=== PATIENT | male | born 1935 | race Caucasian/White ===

== ENCOUNTER 2018-06-06 16:51 | Inpatient (IN) | payer MEDICARE ==
[~2018-06-06] VITALS: Ht 177.8 cm; Wt 92.9 kg
[~2018-06-06 16:51] MED LIST: FURO40TA4; PHEN64.8
--- NOTE | 2018-06-06 17:34 | ERD ---
ER Documentation Chief Complaint Chief Complaint ref by PMD Zac: r/o bowel obstruction. AP since AM. HPI 82-year-old male with a history of seizure disorder, osteoporosis, renal calculi and remote bowel resection for benign colon polyps presents to the ED complaining of a 1 day history of generalized, crampy, moderate to severe abdominal pain with nausea and several episodes of nonbloody nonbilious emesis. Denies diarrhea and had a large bowel movement approximately hour prior to arrival. Denies hematemesis or hematochezia. Denies dysuria, polyuria, hematuria or flank pain. No chest pain, palpitations, shortness of breath or or cough. Denies recent weight loss, anorexia, night sweats, fevers or chills. ROS All systems reviewed and are negative except as per history of present illness. Medications Home Meds Reported Medications Furosemide (Lasix) 40 Mg Tab 07/06/12 Phenobarbital* (Phenobarbital*) 64.8 Mg Tablet 02/21/10 Allergies Allergies: Coded Allergies: No Known Allergy (Verified , 07/06/12) PMhx/Soc Reviewed in chart. As per HPI. History of Surgery: Yes (L shoulder arthroplasty) Anesthesia Reaction: No Hx Neurological Disorder: Yes (EPILEPSY - NO ACTIVITY FOR THE PAST 60 YRS) Hx Respiratory Disorders: No Hx Cardiac Disorders: No Hx Psychiatric Problems: No Hx Miscellaneous Medical Probl: Yes (kidney stones, seizure,UTI with sepsis) Hx Alcohol Use: Yes Hx Substance Use: No Hx Tobacco Use: No Smoking Status: Never smoker FmHx No family history relevant to presenting complaint Physical Exam Vitals Vital Signs Date Temp Pulse Resp B/P (MAP) Pulse Ox O2 O2 Flow FiO2 Time Delivery Rate 06/06/18 98 16 145/74 96 Room Air 19:06 (97) 06/06/18 97.3 131 22 150/68 91 16:52 (95) Physical Exam Const: No acute distress Head: Atraumatic Eyes: Normal Conjunctiva ENT: Normal External Ears, Nose and Mouth. Neck: Full range of motion. No meningismus. Resp: Clear to auscultation bilaterally Cardio: Regular rate and rhythm, no murmurs Abd: Soft, non tender, non distended. Normal bowel sounds Skin: No petechiae or rashes Back: No midline or flank tenderness Ext: No cyanosis, or edema Neur: Awake and alert Psych: Normal Mood and Affect Result Diagram: 06/07/18 0432 06/07/18 0432 Results 24 hrs Laboratory Tests Test 06/06/18 17:54 White Blood Count 16.8 10^3/ul Red Blood Count 5.22 10^6/ul Hemoglobin 16.3 g/dl Hematocrit 51.1 % Mean Corpuscular Volume 97.9 fl Mean Corpuscular Hemoglobin 31.2 pg Mean Corpuscular Hemoglobin Concent 31.9 g/dl Red Cell Distribution Width 13.2 % Platelet Count 261 10^3/UL Mean Platelet Volume 9.1 fl Immature Granulocytes % 0.400 % Neutrophils % 88.7 % Lymphocytes % 4.0 % Monocytes % 6.6 % Eosinophils % 0.0 % Basophils % 0.3 % Nucleated Red Blood Cells % 0.0 /100WBC Immature Granulocytes # 0.070 10^3/ul Neutrophils # 14.9 10^3/ul Lymphocytes # 0.7 10^3/ul Monocytes # 1.1 10^3/ul Eosinophils # 0.0 10^3/ul Basophils # 0.1 10^3/ul Nucleated Red Blood Cells # 0.0 10^3/ul Sodium Level 146 mmol/L Potassium Level 4.5 mmol/L Chloride Level 99 mmol/L Carbon Dioxide Level 34 mmol/L Anion Gap 13 Blood Urea Nitrogen 19 mg/dl Creatinine 1.53 mg/dl Est Glomerular Filtrat Rate mL/min mL/min Glucose Level 156 mg/dl Calcium Level 9.3 mg/dl Total Bilirubin 0.1 mg/dl Direct Bilirubin 0.00 mg/dl Indirect Bilirubin 0.1 mg/dl Aspartate Amino Transf (AST/SGOT) 28 IU/L Alanine Aminotransferase (ALT/SGPT) 20 IU/L Alkaline Phosphatase 97 IU/L Troponin I < 0.012 ng/ml Total Protein 7.8 g/dl Albumin 4.5 g/dl Globulin 3.30 g/dl Albumin/Globulin Ratio 1.36 Lipase 80 U/L Current Medications Medications Dose Sig/Arnold Start Time Status Last (Trade) Ordered Route PRN Stop Time Admin Dose Reason Admin Sodium 1,000 ml @ Q1H STAT 06/06/18 DC 06/06/18 Chloride 1,000 mls/hr IV 19:05 19:10 06/06/18 20:04 Procedures/MDM DOCUMENTS REVIEWED: ED nurse, prior ED, prior records EKG: Time: 1807. Sinus rhythm. Ventricular rate 98. Normal VA QRS. Left ventricular hypertrophy. Q waves in leads III and aVF. No acute ST segment elevation or depression. No ectopy. My Interpretation IMAGING: PROCEDURE: CT abdomen and pelvis without contrast. CLINICAL INDICATION: Abdominal pain. TECHNIQUE: CT scan of the abdomen and pelvis without contrast was performed on a multi-slice CT scanner . Sagittal and coronal reformatted images were obtained from the axial source images. One or more of the following dose reduction techniques were used: - Automated exposure control. - Adjustment of the mA and/or kV according to patient size. - Use of iterative reconstruction technique. DICOM images are available DLP 1164.5 mGycm. CTDIvol 18.71 mGy COMPARISON: 01/01/2016 FINDINGS: Fine detail of the soft tissues is limited secondary to the lack of IV contrast. Evaluation for enhancing lesions cannot be performed. Lower thorax:The lung bases are clear. Coronary artery calcifications are seen in the heart. Liver: There is uniform density of the liver with no gross focal lesion. Biliary: The gallbladder is unremarkable without surrounding inflammation. No biliary dilatation. Pancreas: Homogeneous density of the pancreas without visible focal lesion or cystic abnormality. There is no pancreatic ductal dilatation. Spleen: Unremarkable without enlargement or focal lesion. Adrenal Glands: The adrenal glands are within normal limits without mass. Urinary: The kidneys are symmetric in size bilaterally. There is continued mild bilateral renal atrophy. Several left-sided nonobstructing renal calculi. Change of the largest of the left lower pole measuring 8 mm. There is mild ectasia of the right renal pelvis which is stable from prior exam. There are no ureteral calculi. There is no hydronephrosis. Gastrointestinal: There is a mildly fecal filled colon.No evidence of bowel obstruction or inflammation. The appendix is not visualized. There are surgical changes of a rectal anastomosis with surrounding surgical clips and this appears stable from prior exam. There is diverticulosis without diverticulitis. Lymph nodes: There are no enlarged lymph nodes. Vascular: The aorta is unremarkable. There is aortic atherosclerosis without aneurysmal dilatation. Peritoneum/mesentery: No free fluid or free air. Reproductive organs: The prostate is grossly unremarkable. Musculoskeletal: Degenerative changes are seen in the lumbar spine with stable osteopenia and the presence of mild compression of the vertebral body of T12. There is a trace fat containing left inguinal hernia. There is a small fat containing umbilical hernia. Other: None IMPRESSION: There is a mildly fecal filled colon.No evidence of bowel obstruction or inflammation. Surgical changes of rectal anastomosis. There is diverticulosis without diverticulitis. Atherosclerotic disease is present. Stable renal atrophy with left-sided renal stones. Trace fat containing left inguinal hernia and small fat containing umbilical hernia. There is RPTAT: AA .Nicky Sal MD, MD Date Time Electronically viewed and signed by .Nicky Sal MD, MD on 06/06/2018 17:57 .J/ [employer]-year-old male with a history of seizure disorder, osteoporosis, renal calculi and remote bowel resection for benign colon polyps presents to the ED complaining of a 1 day history of generalized, crampy, moderate to severe abdominal pain with nausea and several episodes of nonbloody nonbilious emesis. Patient was seen by his PMD Dr. Frank and referred to the ED for further evaluation. CBC reveals leukocytosis but no anemia or thrombocytopenia. Chemistry significant for hypernatremia and elevated creatinine consistent with acute renal insufficiency secondary to dehydration. Phenobarbital level is pending. Troponin is negative. EKG reveals no evidence of acute ischemia or dysrhythmia. CT of the abdomen and pelvis without intravenous contrast to evaluate for an acute intra-abdominal process including but not limited to appendicitis, diverticulitis, bowel obstruction, obstructive uropathy, biliary disease, pancreatitis, abdominal aortic aneurysm, mesenteric ischemia and neoplasm reveals nonobstructive nephrolithiasis and moderate fecal load without evidence of obstruction but is unremarkable for an acute process. Admit to med/surg for further evaluation and management. PATIENT CARE TRANSITIONED: Time: 18:52, Dr. Frank. Counseled patient and family regarding diagnosis, diagnostic results and plan for admission. Departure Diagnosis: Primary Impression: Acute generalized abdominal pain Additional Impressions: Dehydration Hypernatremia Renal calculi Seizure disorder Condition: Serious ROZ COTTER MD Jun 06, 2018 17:34
--- NOTE | 2018-06-06 17:49 | HP ---
DATE OF ADMISSION: 06/06/2018 REASON FOR ADMISSION: Epigastric abdominal pain with nausea and vomiting. HISTORY OF PRESENT ILLNESS: This 82-year-old man was in his usual state of health until this morning when he developed sudden onset of epigastric type pain. This was associated with nausea and vomitin g. The patient did have a bowel movement today. He denies any hematemesis or rectal bleeding. PAST MEDICAL HISTORY: He has the following past medical history: Seizure disorder, kidney stones, o bstructive uropathy, history of obstructive uropathy, urinary tract infection, rosacea, sciatic, hype rglycemia, vitamin D deficiency, history of gross hematuria, osteoporosis, and history of encephalopa thy. PAST SURGICAL HISTORY: Colon resection for benign colon polyp, history of shoulder replacement. SOCIAL HISTORY: He has never smoked. He does not drink alcohol. He is a retired [employer] and [employer]. FAMILY HISTORY: Unremarkable. REVIEW OF SYSTEMS: CONSTITUTIONAL: No chills or sweats. EARS, NOSE AND THROAT: Negative. CARDIOVASCULAR: He denies any chest pain or shortness of breath. He does have chronic ankle swellin g. GASTROINTESTINAL: See above. GENITOURINARY: Negative. NEUROMUSCULAR: He is up using a walker to ambulate. He has no focal neurologic deficits. PHYSICAL EXAMINATION: GENERAL: Physical examination at this time reveals an elderly man in no apparent distress. VITAL SIGNS: Blood pressure 120/70, temperature 96.2, O2 sat of 97% on room air. HEAD: Normocephalic. EYES: Extraocular muscles intact. NOSE AND MOUTH: Normal. NECK: Supple. No neck vein distention. LUNGS: Clear to auscultation. HEART: Regular rhythm. No murmurs, gallops or rubs. ABDOMEN: Distended, soft, nontender. He does have a reducible small umbilical hernia. He does have high pitched bowel sounds. EXTREMITIES: He has +1 ankle edema. He has no focal neurologic deficits. IMPRESSION: 1. Epigastric pain with nausea and vomiting. His abdomen is distended and he has hypoactive high pi tched bowel sounds which suggests to me small-bowel obstruction. 2. History of a seizure disorder. 3. Osteoporosis. 4. Previous kidney stones and urinary tract infection. PLAN: 1. The patient is being evaluated in the Emergency Room. 2. He will have a CAT scan of the abdomen and pelvis. 3. He will have routine laboratory tests. 4. If my suspicion is true, then he will be seen by a general surgeon and will be admitted to the [facility] for further evaluation and treatment. Dictated By: GERALDO JEAN BAPTISTE MD, ND/ANATOLY Conf#: [id number] DID#: [id number]
[2018-06-06] MEDS ORDERED: SOD CHLORIDE 0.9% 1,000 ML IV STA (19:05)
[2018-06-06] MEDS ORDERED: ONDANSETRON 4 MG INJ IV PRN ×2 (19:30→20:00)
[2018-06-06] MEDS ORDERED: ACETAMINOPHEN 325 MG TAB PO PRN ×2 (19:30→20:00)
[2018-06-06] MEDS ORDERED: NACL 0.9% 3 ML SYG IV SCH (20:00)
[2018-06-06] MEDS: DOCUSATE SODIUM 100 MG CAP PO SCH (20:00)
[2018-06-06] MEDS ORDERED: MAGNESIUM HYDROXIDE 30ML CUP PO PRN (20:00)
[2018-06-06] MEDS: DEXTROSE 5%-0.45% NACL 1,000 ML IV SCH (20:58)
[2018-06-06 21:53] VITALS: BP 136/70; PULSE 95; RESP 16
[2018-06-06 22:14] VITALS: Ht 177.8 cm; Wt 92.9 kg
[2018-06-06] MEDS: PHENOBARBITAL 32.4 MG TAB PO SCH (23:09)
[2018-06-07 01:52] VITALS: BP 148/67; PULSE 78; RESP 16
[2018-06-07] MEDS: DEXTROSE 5%-0.45% NACL 1,000 ML IV SCH ×3 (06:23→18:18)
[2018-06-07] MEDS: PANTOPRAZOLE (EC) 40 MG TAB PO SCH (06:27)
[2018-06-07 07:29] VITALS: BP 140/68; PULSE 80; RESP 20
--- NOTE | 2018-06-07 08:30 | PN ---
Date/Time of Note Date/Time of Note DATE: 06/07/18 TIME: 08:20 Assessment/Plan VTE Prophylaxis Risk score (from Ns)>0 risk: 5 SCD applied (from Ns): Yes Pharmacological prophylaxis: LMWH Lines/Catheters IV [facility]from [facility] Peripheral IV Assessment/Plan Hospital Course 1. Epigastric abdominal pain with nausea and vomiting has resolved. The patient's CAT scan did not show any bowel obstruction. He did have a large amount of stool in the rectum. He had a bowel movement last night. He has n ormal bowel sounds now and his abdominal exam is unremarkable except for distention. I will start the patient on a full liquid diet and see how he tolerates that. 2. Acute renal failure. His renal function is improving. 3. Leukocytosis. His white blood count is lower today. Result Diagram: 06/07/18 0432 06/07/18 0432 Results 24hrs Laboratory Tests Test 06/06/18 17:54 06/06/18 21:30 06/07/18 04:32 White Blood Count 16.8 H 11.4 #H Red Blood Count 5.22 4.49 L Hemoglobin 16.3 14.1 Hematocrit 51.1 43.4 Mean Corpuscular Volume 97.9 96.7 Mean Corpuscular Hemoglobin 31.2 31.4 Mean Corpuscular Hemoglobin Concent 31.9 L 32.5 Red Cell Distribution Width 13.2 13.4 Platelet Count 261 215 Mean Platelet Volume 9.1 9.5 Immature Granulocytes % 0.400 0.400 Neutrophils % 88.7 H 79.6 H Lymphocytes % 4.0 L 10.1 L Monocytes % 6.6 9.4 Eosinophils % 0.0 0.1 Basophils % 0.3 0.4 Nucleated Red Blood Cells % 0.0 0.0 Immature Granulocytes # 0.070 H 0.050 H Neutrophils # 14.9 H 9.0 H Lymphocytes # 0.7 L 1.2 Monocytes # 1.1 H 1.1 H Eosinophils # 0.0 0.0 Basophils # 0.1 0.0 Nucleated Red Blood Cells # 0.0 0.0 Sodium Level 146 H 142 Potassium Level 4.5 4.2 Chloride Level 99 106 Carbon Dioxide Level 34 H 31 Anion Gap 13 5 # Blood Urea Nitrogen 19 19 Creatinine 1.53 H 1.38 H Est Glomerular Filtrat Rate mL/min Glucose Level 156 107 # Calcium Level 9.3 8.2 L Total Bilirubin 0.1 L 0.0 L Direct Bilirubin 0.00 0.00 Indirect Bilirubin 0.1 0.0 Aspartate Amino Transf (AST/SGOT) 28 20 Alanine Aminotransferase (ALT/SGPT) 20 24 Alkaline Phosphatase 97 76 Troponin I < 0.012 Total Protein 7.8 5.9 #L Albumin 4.5 3.4 # Globulin 3.30 H 2.50 Albumin/Globulin Ratio 1.36 1.36 Lipase 80 Urine Color YELLOW Urine Clarity CLEAR Urine pH 6.0 Urine Specific [place] 1.015 Urine Ketones NEGATIVE Urine Nitrite NEGATIVE Urine Bilirubin NEGATIVE Urine Urobilinogen NEGATIVE Urine Leukocyte Esterase NEGATIVE Urine Microscopic RBC 25 H Urine Microscopic WBC 2 Urine Hemoglobin 2+ H Urine Glucose NEGATIVE Urine Total Protein NEGATIVE Hemoglobin A1c 5.3 Phosphorus Level 2.7 Magnesium Level 2.3 Subjective 24 Hr Interval Summary Free Text/Dictation Patient is sleeping this morning. He is easily arousable. He denies abdominal pain, nausea, vomiting. He is overall feeling better from yesterday. He said he did have a large bowel movement last night. Constitutional: no complaints, improved Respiratory: no complaints Cardiovascular: no complaints Gastrointestinal: no complaints Musculoskeletal: no complaints Neurologic: no complaints Exam/Review of Systems Vital Signs Vitals Vital Signs Date Temp Pulse Resp B/P (MAP) Pulse Ox O2 O2 Flow FiO2 Time Delivery Rate 06/07/18 98.2 80 20 140/68 92 Room Air 07:29 (92) Intake and Output 06/06/18 06/06/18 06/07/18 1515:00 23:00 07:00 IntakeIntake Total 1000 ml 665 ml BalanceBalance 1000 ml 665 ml Exam Constitutional: alert, oriented, frail, obese Psych: no complaints Respiratory: clear to auscultation, normal air movement Cardiovascular: regular rate and rhythm, edema Gastrointestinal: soft, non-tender, distended Medications Medications Current Medications Dextrose/Sodium Chloride 1,000 ml @ 125 mls/hr Q8H IV Last administered on 06/07/18at 06:23; Admin Dose 125 MLS/HR; Start 06/06/18 at 19:38 IV Flush (NS 3 ml) 3 ml PER PROTOCOL IV ; Start 06/06/18 at 20:00 Ondansetron HCl (Zofran Inj) 4 mg Q6H PRN IV NAUSEA AND/OR VOMITING Last administered on 06/06/18at 23:18; Admin Dose 4 MG; Start 06/06/18 at 20:00 Acetaminophen (Tylenol Tab) 650 mg Q6H PRN PO PAIN LEVEL 1-3 OR FEVER; Start 06/06/18 at 20:00 Docusate Sodium (Colace) 100 mg Q12H PO ; Start 06/06/18 at 20:00 Magnesium Hydroxide (Milk Of Mag) 30 ml DAILY PRN PO CONSTIPATION; Start 06/06/18 at 20:00 Pantoprazole (Protonix Tab) 40 mg DAILY@06 PO Last administered on 06/07/18at 06:27; Admin Dose 40 MG; Start 06/07/18 at 06:00 Phenobarbital (Luminal) 64.8 mg BID PO Last administered on 06/06/18at 23:09; Admin Dose 64.8 MG; Start 06/06/18 at 23:00 Influenza Virus Vaccine Quadrival (Fluzone) 0.5 ml ONCE ONCE IM* ; Start 06/07/18 at 10:00; Stop 06/07/18 at 10:01 GERALDO JEAN BAPTISTE MD Jun 07, 2018 08:30
[2018-06-07] MEDS: DOCUSATE SODIUM 100 MG CAP PO SCH ×2 (09:00→20:33)
[2018-06-07] MEDS ORDERED: PHENOBARBITAL 32.4 MG TAB PO SCH ×2 (09:00)
[2018-06-07] MEDS: ENOXAPARIN 30 MG/0.3 ML SYG SC SCH (09:03)
[2018-06-07] MEDS: PHENOBARBITAL 32.4 MG TAB PO SCH ×2 (09:08→20:34)
[2018-06-07] MEDS ORDERED: INFLUENZA VIRUS VACCINE 0.5 ML (DISPENSING) IM* ONE (10:00)
[2018-06-07] MEDS ORDERED: AL HYDROX/MG HYDROX/SIMETH 30 ML CUP PO PRN (12:30)
[2018-06-07 14:34] VITALS: BP 134/63; PULSE 70
[2018-06-07 20:31] VITALS: BP 119/63; PULSE 62; RESP 19
[2018-06-08] MEDS: DEXTROSE 5%-0.45% NACL 1,000 ML IV SCH ×2 (01:55→06:44)
[2018-06-08 02:38] VITALS: BP 134/69; PULSE 70; RESP 18
[2018-06-08] MEDS: PANTOPRAZOLE (EC) 40 MG TAB PO SCH (05:11)
[2018-06-08 07:38] VITALS: BP 144/70; PULSE 81; RESP 20
[2018-06-08] MEDS: PHENOBARBITAL 32.4 MG TAB PO SCH ×2 (08:55→20:53)
[2018-06-08] MEDS: DOCUSATE SODIUM 100 MG CAP PO SCH ×2 (08:55→20:52)
[2018-06-08] MEDS: ENOXAPARIN 30 MG/0.3 ML SYG SC SCH (08:57)
--- NOTE | 2018-06-08 13:45 | PN ---
Date/Time of Note Date/Time of Note DATE: 06/08/18 TIME: 13:40 Assessment/Plan VTE Prophylaxis Risk score (from Ns)>0 risk: 5 SCD applied (from Ns): Yes Pharmacological prophylaxis: LMWH Lines/Catheters [facility]from [facility] Peripheral IV Urinary Cath still in place: No Assessment/Plan Hospital Course 1. Epigastric abdominal pain with nausea and vomiting has resolved. The patient's CAT scan did not show any bowel obstruction. He did have a large amount of stool in the rectum. He had a bowel movement last night. He has normal bowel sounds now and his abdominal exam is unremarkable except for distention. I will start the patient on a regular diet and see how he tolerates that. I will check a x-ray abdominal series to see if he is clearing his bowel. 2. Acute renal failure. His renal function is improving. 3. Leukocytosis. His white blood count is normal today. Result Diagram: 06/08/18 04206/08/18 0420 Results 24hrs Laboratory Tests Test 06/08/18 04:20 White Blood Count 6.9 # Red Blood Count 4.29 L Hemoglobin 13.5 L Hematocrit 41.4 L Mean Corpuscular Volume 96.5 Mean Corpuscular Hemoglobin 31.5 Mean Corpuscular Hemoglobin Concent 32.6 Red Cell Distribution Width 13.3 Platelet Count 190 Mean Platelet Volume 9.5 Immature Granulocytes % 0.300 Neutrophils % 66.0 Lymphocytes % 18.4 Monocytes % 12.9 H Eosinophils % 2.0 Basophils % 0.4 Nucleated Red Blood Cells % 0.0 Immature Granulocytes # 0.020 Neutrophils # 4.6 Lymphocytes # 1.3 Monocytes # 0.9 Eosinophils # 0.1 Basophils # 0.0 Nucleated Red Blood Cells # 0.0 Sodium Level 140 Potassium Level 3.8 Chloride Level 106 Carbon Dioxide Level 30 Anion Gap 4 L Blood Urea Nitrogen 13 Creatinine 1.21 Est Glomerular Filtrat Rate mL/min Glucose Level 106 Calcium Level 7.9 L Total Bilirubin 0.1 L Direct Bilirubin 0.00 Indirect Bilirubin 0.1 Aspartate Amino Transf (AST/SGOT) 21 Alanine Aminotransferase (ALT/SGPT) 23 Alkaline Phosphatase 69 Total Protein 5.6 L Albumin 3.2 L Globulin 2.40 Albumin/Globulin Ratio 1.33 Subjective 24 Hr Interval Summary Free Text/Dictation He is sleeping but arouses easily to verbal stimuli. He has no new complaints. He denies abdominal pain, nausea, vomiting. He says that he is having bowel movements. Constitutional: no complaints, improved Respiratory: no complaints Cardiovascular: no complaints Gastrointestinal: no complaints Genitourinary: no complaints Musculoskeletal: no complaints Exam/Review of Systems Vital Signs Vitals Vital Signs Date Temp Pulse Resp B/P (MAP) Pulse Ox O2 O2 Flow FiO2 Time Delivery Rate 06/08/18 97.7 81 20 144/70 94 Room Air 07:38 (94) Intake and Output 06/07/18 06/07/18 06/08/18 1515:00 23:00 07:00 IntakeIntake Total 920 ml 1400 ml 1680 ml OutputOutput Total 500 ml 300 ml 800 ml BalanceBalance 420 ml 1100 ml 880 ml Exam Constitutional: alert, oriented, frail, obese Neck: supple Respiratory: clear to auscultation, normal air movement Cardiovascular: regular rate and rhythm, edema Gastrointestinal: soft, non-tender, distended Extremities: edema Medications Medications Current Medications Dextrose/Sodium Chloride 1,000 ml @ 80 mls/hr [id number] IV Last administered on 06/08/18at 06:44; Admin Dose 80 MLS/HR; Start 06/06/18 at 19:38 IV Flush (NS 3 ml) 3 ml PER PROTOCOL IV ; Start 06/06/18 at 20:00 Ondansetron HCl (Zofran Inj) 4 mg Q6H PRN IV NAUSEA AND/OR VOMITING Last administered on 06/06/18at 23:18; Admin Dose 4 MG; Start 06/06/18 at 20:00 Acetaminophen (Tylenol Tab) 650 mg Q6H PRN PO PAIN LEVEL 1-3 OR FEVER; Start 06/06/18 at 20:00 Docusate Sodium (Colace) 100 mg Q12H PO Last administered on 06/08/18at 08:55; Admin Dose 100 MG; Start 06/06/18 at 20:00 Magnesium Hydroxide (Milk Of Mag) 30 ml DAILY PRN PO CONSTIPATION; Start 06/06/18 at 20:00 Pantoprazole (Protonix Tab) 40 mg DAILY@06 PO Last administered on 06/08/18at 05:11; Admin Dose 40 MG; Start 06/07/18 at 06:00 Phenobarbital (Luminal) 64.8 mg BID PO Last administered on 06/08/18at 08:55; Admin Dose 64.8 MG; Start 06/06/18 at 23:00 Enoxaparin Sodium (Lovenox) 30 mg DAILY SC Last administered on 06/08/18at 08:57; Admin Dose 30 MG; Start 06/07/18 at 09:00 Al Hydrox/Mg Hydrox/Simethicone (Mag-Al Plus) 30 ml Q6H PRN PO GASTROINTESTINAL UPSET Last administered on 06/07/18at 12:23; Admin Dose 30 ML; Start 06/07/18 at 12:30 GERALDO JEAN BAPTISTE MD Jun 08, 2018 13:45
[2018-06-08 14:47] VITALS: BP 127/60; PULSE 74; RESP 18
[2018-06-08 19:10] VITALS: BP 118/59; PULSE 75; RESP 18
[2018-06-09 02:00] VITALS: BP 101/52; PULSE 69; RESP 18
[2018-06-09] MEDS: PANTOPRAZOLE (EC) 40 MG TAB PO SCH (05:29)
[2018-06-09 07:55] VITALS: BP 131/60; PULSE 65; RESP 20
[2018-06-09] MEDS: DOCUSATE SODIUM 100 MG CAP PO SCH ×2 (08:44→20:41)
[2018-06-09] MEDS: PHENOBARBITAL 32.4 MG TAB PO SCH ×2 (08:45→21:32)
[2018-06-09] MEDS: FUROSEMIDE 40 MG TAB PO SCH (08:45)
[2018-06-09] MEDS: ENOXAPARIN 30 MG/0.3 ML SYG SC SCH (08:46)
--- NOTE | 2018-06-09 10:00 | PN ---
Date/Time of Note Date/Time of Note DATE: 06/09/18 TIME: 09:53 Assessment/Plan VTE Prophylaxis Risk score (from Ns)>0 risk: 4 SCD applied (from Ns): Yes Pharmacological prophylaxis: LMWH Lines/Catheters IV Catheter Type (from Nrs): Saline Lock Urinary Cath still in place: No Assessment/Plan Hospital Course 1. Epigastric abdominal pain with nausea and vomiting has resolved. [facility] did not show any bowel obstruction. He did have a large amount of stool in the rectum. He had a bowel movement last night. He has normal bowel sounds now and his abdominal exam is unremarkable except for distention. I will start the patient on a regular diet and see how he tolerates that. The abdominal x-ray series that was done yesterday was unremarkable. 2. Acute renal failure on CKD . His renal function is improving. 3. Leukocytosis. His white blood count is normal today. 4. Edema. He has a history of chronic lower extremity edema and has been on furosemide 40 mg a day prior to his admission. His EKG is abnormal. I will order an echocardiogram and will have a cardiology consultation. Result Diagram: 06/08/18 0420 06/09/18 0431 Results 24hrs Laboratory Tests Test 06/09/18 04:31 Sodium Level 140 Potassium Level 3.8 Chloride Level 107 Carbon Dioxide Level 28 Anion Gap 5 Blood Urea Nitrogen 13 Creatinine 1.33 H Est Glomerular Filtrat Rate mL/min Glucose Level 89 Calcium Level 8.1 L Total Bilirubin 0.0 L Direct Bilirubin 0.00 Indirect Bilirubin 0.0 Aspartate Amino Transf (AST/SGOT) 17 Alanine Aminotransferase (ALT/SGPT) 17 Alkaline Phosphatase 64 B-Type Natriuretic Peptide 508 H Total Protein 5.4 L Albumin 3.0 L Globulin 2.40 Albumin/Globulin Ratio 1.25 Subjective 24 Hr Interval Summary Free Text/Dictation Dre is awake and alert. He has eaten all of his breakfast. He is overall feeling better. Constitutional: no complaints, improved Cardiovascular: no complaints, edema Gastrointestinal: no complaints Genitourinary: no complaints Exam/Review of Systems Vital Signs Vitals Vital Signs Date Temp Pulse Resp B/P (MAP) Pulse Ox O2 O2 Flow FiO2 Time Delivery Rate 06/09/18 97.7 65 20 131/60 96 07:55 (83) 06/08/18 Room Air 14:47 Intake and Output 06/08/18 06/08/18 06/09/18 1515:00 23:00 07:00 IntakeIntake Total 1480 ml OutputOutput Total 200 ml BalanceBalance -200 ml 1480 ml Exam Constitutional: alert, oriented, frail, obese Respiratory: clear to auscultation, normal air movement Cardiovascular: regular rate and rhythm, edema Gastrointestinal: soft, non-tender, distended Musculoskeletal: nl extremities to inspection Extremities: edema Medications Medications Current Medications IV Flush (NS 3 ml) 3 ml PER PROTOCOL IV ; Start 06/06/18 at 20:00 Ondansetron HCl (Zofran Inj) 4 mg Q6H PRN IV NAUSEA AND/OR VOMITING Last administered on 06/06/18at 23:18; Admin Dose 4 MG; Start 06/06/18 at 20:00 Acetaminophen (Tylenol Tab) 650 mg Q6H PRN PO PAIN LEVEL 1-3 OR FEVER; Start 06/06/18 at 20:00 Docusate Sodium (Colace) 100 mg Q12H PO Last administered on 06/09/18at 08:44; Admin Dose 100 MG; Start 06/06/18 at 20:00 Magnesium Hydroxide (Milk Of Mag) 30 ml DAILY PRN PO CONSTIPATION; Start 06/06/18 at 20:00 Pantoprazole (Protonix Tab) 40 mg DAILY@06 PO Last administered on 06/09/18at 05:29; Admin Dose 40 MG; Start 06/07/18 at 06:00 Phenobarbital (Luminal) 64.8 mg BID PO Last administered on 06/09/18at 08:45; Admin Dose 64.8 MG; Start 06/06/18 at 23:00 Enoxaparin Sodium (Lovenox) 30 mg DAILY SC Last administered on 06/09/18at 08:46; Admin Dose 30 MG; Start 06/07/18 at 09:00 Al Hydrox/Mg Hydrox/Simethicone (Mag-Al Plus) 30 ml Q6H PRN PO GASTROINTESTINAL UPSET Last administered on 06/07/18at 12:23; Admin Dose 30 ML; Start 06/07/18 at 12:30 Furosemide (Lasix) 40 mg DAILY PO Last administered on 06/09/18at 08:45; Admin Dose 40 MG; Start 1/17/19 at 09:00 GERALDO JEAN BAPTISTE MD Jun 09, 2018 10:00
--- NOTE | 2018-06-09 15:09 | CONS ---
Date/Time of Note Date/Time of Note DATE: 06/09/18 TIME: 15:05 Assessment/Plan Assessment/Plan Assessment/Plan Abdominal pain and nausea, improved Renal dysfunction Abnormal ECG Seizure disorder -Patient denies symptoms of exertional chest pain, he does get occasional shortness of breath with activity but does not limit his activity. ECG with borderline Q waves in inferior leads. Will check echocardiogram. Result Diagram: 06/08/18 0420 06/09/18 0431 Results 24hrs Laboratory Tests Test 06/09/18 04:31 Sodium Level 140 Potassium Level 3.8 Chloride Level 107 Carbon Dioxide Level 28 Anion Gap 5 Blood Urea Nitrogen 13 Creatinine 1.33 H Est Glomerular Filtrat Rate mL/min Glucose Level 89 Calcium Level 8.1 L Total Bilirubin 0.0 L Direct Bilirubin 0.00 Indirect Bilirubin 0.0 Aspartate Amino Transf (AST/SGOT) 17 Alanine Aminotransferase (ALT/SGPT) 17 Alkaline Phosphatase 64 B-Type Natriuretic Peptide 508 H Total Protein 5.4 L Albumin 3.0 L Globulin 2.40 Albumin/Globulin Ratio 1.25 Consultation Date/Type/Reason Admit Date/Time Jun 06, 2018 at 19:07 Type of Consult cv Reason for Consultation Abnormal electrocardiogram Hx of Present Illness This is an 82-year-old male with past medical history of seizure disorder, renal dysfunction who was admitted with abdominal pain and nausea. Patient undergoing workup and found to have an abnormal ECG for this reason cardiology condition was requested. Patient denies symptoms of exertional chest pain, at times he does feel short of breath with long walking. He denies any paroxysmal nocturnal dyspnea. He does have intermittent lower extremity edema. Denies any cardiac history. 12 point review of systems was performed with all pertinent positives and negatives mentioned above and all else is negative Past Medical History Seizure disorder Nephrolithiasis Medical History: renal disease Medications Current Medications IV Flush (NS 3 ml) 3 ml PER PROTOCOL IV ; Start 06/06/18 at 20:00 Ondansetron HCl (Zofran Inj) 4 mg Q6H PRN IV NAUSEA AND/OR VOMITING Last administered on 06/06/18at 23:18; Admin Dose 4 MG; Start 06/06/18 at 20:00 Acetaminophen (Tylenol Tab) 650 mg Q6H PRN PO PAIN LEVEL 1-3 OR FEVER; Start 06/06/18 at 20:00 Docusate Sodium (Colace) 100 mg Q12H PO Last administered on 06/09/18at 08:44; Admin Dose 100 MG; Start 06/06/18 at 20:00 Magnesium Hydroxide (Milk Of Mag) 30 ml DAILY PRN PO CONSTIPATION; Start 06/06/18 at 20:00 Pantoprazole (Protonix Tab) 40 mg DAILY@06 PO Last administered on 06/09/18at 05:29; Admin Dose 40 MG; Start 06/07/18 at 06:00 Phenobarbital (Luminal) 64.8 mg BID PO Last administered on 06/09/18at 08:45; Admin Dose 64.8 MG; Start 06/06/18 at 23:00 Enoxaparin Sodium (Lovenox) 30 mg DAILY SC Last administered on 06/09/18at 08:46; Admin Dose 30 MG; Start 06/07/18 at 09:00 Al Hydrox/Mg Hydrox/Simethicone (Mag-Al Plus) 30 ml Q6H PRN PO GASTROINTESTINAL UPSET Last administered on 06/07/18at 12:23; Admin Dose 30 ML; Start 06/07/18 at 12:30 Furosemide (Lasix) 40 mg DAILY PO Last administered on 06/09/18at 08:45; Admin Dose 40 MG; Start 06/09/18 at 09:00 Allergies: Coded Allergies: No Known Allergy (Verified , 07/06/12) Family History Significant Family History: no pertinent family hx Social History Alcohol Use: none Smoking Status: Former smoker Drug Use: none Exam/Review of Systems Vital Signs Vitals Vital Signs Date Temp Pulse Resp B/P (MAP) Pulse Ox O2 O2 Flow FiO2 Time Delivery Rate 06/09/18 97.7 65 20 131/60 96 07:55 (83) 06/08/18 Room Air 14:47 Intake and Output 06/08/18 06/08/18 06/09/18 1515:00 23:00 07:00 IntakeIntake Total 1480 ml OutputOutput Total 200 ml BalanceBalance -200 ml 1480 ml Exam No apparent distress Constitutional: alert, oriented, obese Head: normocephalic Respiratory: other (Coarse breath sounds bilaterally, no wheezing) Cardiovascular: regular rate and rhythm, other (S1-S2 heard) Gastrointestinal: soft, non-tender, bowel sounds Extremities: edema Medications Medications Current Medications IV Flush (NS 3 ml) 3 ml PER PROTOCOL IV ; Start 06/06/18 at 20:00 Ondansetron HCl (Zofran Inj) 4 mg Q6H PRN IV NAUSEA AND/OR VOMITING Last administered on 06/06/18at 23:18; Admin Dose 4 MG; Start 06/06/18 at 20:00 Acetaminophen (Tylenol Tab) 650 mg Q6H PRN PO PAIN LEVEL 1-3 OR FEVER; Start 06/06/18 at 20:00 Docusate Sodium (Colace) 100 mg Q12H PO Last administered on 06/09/18at 08:44; Admin Dose 100 MG; Start 06/06/18 at 20:00 Magnesium Hydroxide (Milk Of Mag) 30 ml DAILY PRN PO CONSTIPATION; Start 06/06/18 at 20:00 Pantoprazole (Protonix Tab) 40 mg DAILY@06 PO Last administered on 06/09/18at 05:29; Admin Dose 40 MG; Start 06/07/18 at 06:00 Phenobarbital (Luminal) 64.8 mg BID PO Last administered on 06/09/18at 08:45; Admin Dose 64.8 MG; Start 06/06/18 at 23:00 Enoxaparin Sodium (Lovenox) 30 mg DAILY SC Last administered on 06/09/18at 08:46; Admin Dose 30 MG; Start 06/07/18 at 09:00 Al Hydrox/Mg Hydrox/Simethicone (Mag-Al Plus) 30 ml Q6H PRN PO GASTROINTESTINAL UPSET Last administered on 06/07/18at 12:23; Admin Dose 30 ML; Start 06/07/18 at 12:30 Furosemide (Lasix) 40 mg DAILY PO Last administered on 06/09/18at 08:45; Admin Dose 40 MG; Start 06/09/18 at 09:00 Imaging Imaging ECG demonstrates sinus rhythm at 98 bpm, left ventricular hypertrophy, borderl ine inferior Q waves, nonspecific ST abnormalities Gilson Flynn DO Jun 09, 2018 15:09
[2018-06-09 19:10] VITALS: BP 123/57; PULSE 72; RESP 18
--- NOTE | 2018-06-09 21:35 | RADRPT ---
Echocardiogram Report Patient Name: TD TY Gender: Male Date: 1935 Study Date: 09-Jun-2018 [employer] Professor: Kimberly Patel [facility] Location: [id number] Ref. Physician: GERALDO JEAN BAPTISTE Quality: Adequate Procedures: Transthoracic echocardiogram with complete 2D, M-Mode, and doppler examination. Indications: Abnormal EKG. 2D/M Mode Doppler Measurement Value Normal Ranges Measurement Value Normal Ranges LVIDd 2D 4.9 3.5 - 5.6 cm AV Peak Willie 1.2 m/sec LVIDs 2D 2.4 2.1 - 4.1 cm AV Peak PG 6.0 mmHg FS 2D 51.9 % LVOT Peak Willie 1.0 m/sec LVPWd 2D 1.1 0.6 - 1.1 cm LVOT Peak PG 4.0 mmHg IVSd 2D 1.1 0.6 - 1.1 cm MV E Peak Willie 0.9 m/sec IVS/LVPW 2D 1.0 MV A Peak Willie 0.9 m/sec AoR Diam 2D 2.9 2.0 - 3.7 cm MV E/A 0.9 LA/Ao 2D 1 0 - 1 MV Decel Time 243 msec EDV 2D 118.0 cm3 MV E/A 0.9 ESV 2D 13.1 cm3 LA Dimen 2D 3.3 2.3 - 4.0 cm Findings Left Ventricle: Normal left ventricular systolic function. Normal left ventricular cavity size. Mild concentric left ventricular hypertrophy. Ejection fraction is visually estimated at 65 %. Tissue Doppler/Mitral Doppler indices are consistent with impaired relaxation (Stage I diastolic dysfunction). Right Ventricle: Normal right ventricular size. Normal right ventricular systolic function. Left Atrium: The left atrium is normal in size. Right Atrium: The right atrium is normal in size. Mitral Valve: Normal appearance and function of the mitral valve with trace physiologic regurgitation. Aortic Valve: Normal appearance of the aortic valve. No significant aortic stenosis or insufficiency. Tricuspid Valve: Normal appearance of the tricuspid valve. Unable to obtain RVSP due to minimal presence of tricuspid regurgitation. Pulmonic Valve: Normal pulmonic valve appearance. Pericardium: Normal pericardium with no significant pericardial effusion. Aorta: Normal aortic root. IVC: Normal size and normal respiratory collapse consistent with normal right atrial pressure. Conclusions Normal left ventricular systolic function. Normal left ventricular cavity size. Mild concentric left ventricular hypertrophy. Ejection fraction is visually estimated at 65 %. Tissue Doppler/Mitral Doppler indices are consistent with impaired relaxation (Stage I diastolic dysfunction). Normal right ventricular size. Normal right ventricular systolic function. The left atrium is normal in size. The right atrium is normal in size. No significant valvular stenosis or regurgitation seen. Normal pericardium with no significant pericardial effusion. Electronically Signed By: Gilson Flynn 09-Jun-2018 21:34:53 -0800 Patient Name: TD TY Study Date: 09-Jun-2018 [id number]
[2018-06-10 02:00] VITALS: BP 126/64; PULSE 77; RESP 18
[2018-06-10] MEDS: PANTOPRAZOLE (EC) 40 MG TAB PO SCH (06:33)
[2018-06-10 08:03] VITALS: BP 143/65; PULSE 68; RESP 18
[2018-06-10] MEDS: DOCUSATE SODIUM 100 MG CAP PO SCH (08:41)
[2018-06-10] MEDS: PHENOBARBITAL 32.4 MG TAB PO SCH (08:41)
[2018-06-10] MEDS: FUROSEMIDE 40 MG TAB PO SCH (08:42)
[2018-06-10] MEDS: ENOXAPARIN 30 MG/0.3 ML SYG SC SCH (08:43)
--- NOTE | 2018-06-10 09:40 | PDOCDIS ---
Discharge Instructions DIAGNOSIS Discharge Diagnosis acute gastroenteritis , constipation CONDITION [id number] Patient Condition: [id number] Good HOME CARE INSTRUCTIONS: [id number] Diet Instructions: [id number] Regular ACTIVITY: [id number] Activity Restrictions: [id number] No Restrictions Slowly Increase Activity Rest between Activity Avoid heavy lifting [id number] Bathing Restrictions: [id number] Shower FOLLOW UP/APPOINTMENTS Follow-up Plan Dr Dolan in 2 weeks . GERALDO JEAN BAPTISTE MD Jun 10, 2018 09:40
--- NOTE | 2018-06-10 10:18 | DS ---
DATE OF ADMISSION: 06/06/2018 DATE OF DISCHARGE: 06/10/2018 HISTORY OF PRESENT ILLNESS AND HOSPITAL COURSE: This 82-year-old man was admitted through the [facility] after he presented to my office complaining of sudden onset of epigastric abdominal pain wit h vomiting. He was seen in the Emergency Room and underwent a CAT scan of the abdomen which did not show any evidence of GI obstruction. There was some mildly fecal-filled colon, but no evidence of ob struction or inflammation. The patient also has stable renal atrophy with left-sided kidney stones. He has a left inguinal hernia and a small umbilical hernia. The patient was admitted, given intrave nous fluids. He was given stool softeners and laxatives and did have several bowel movements. His e pigastric abdominal pain resolved. He was up walking. He was eating a regular diet. Because of low er extremity edema and an abnormal EKG, he was seen in consultation by Dr. Gilson Flynn, a local ca rdiologist. Dr. Flynn did an echocardiogram which was essentially unremarkable. There was no evide nce of hypokinesis or valvular heart disease. The patient was started back on furosemide. The patie nt was in good condition at the time of discharge. The patient will be discharged home to the care o f his family. I did speak to the patient's daughter and she was aware that he was going to have a ca rdiac workup. Dr. Flynn felt that the patient could go home without further workup at this time. T he patient will be discharged home on the following medications: 1. Phenobarbital 64.8 mg once a day. 2. Protonix 40 mg a day. 3. Lasix 40 mg a day. 4. Stool softener. He will see me in my office in 2 weeks. DISCHARGE DIAGNOSES: 1. Acute gastroenteritis. 2. Constipation with some nausea and vomiting. 3. Localized lower extremity edema due to dependent edema. 4. History of seizure disorder. 5. Kidney stones. 6. Chronic kidney disease. Dictated By: GERALDO JEAN BAPTISTE MD ND/ANATOLY Conf#: [id number] DID#: [id number] CC: GERALDO JEAN BAPTISTE MD;*EndCC*
--- NOTE | 2018-06-10 12:38 | CONS ---
Date/Time of Note Date/Time of Note DATE: 06/10/18 TIME: 12:36 Assessment/Plan Assessment/Plan Assessment/Plan Abdominal pain and nausea, improved Renal dysfunction Abnormal ECG Preserved ejection fraction Seizure disorder -Patient doing well and asymptomatic without symptoms of chest pain or shortness of breath -Echocardiogram with preserved ejection fraction with no significant abnormalities -No further inpatient cardiac workup needed at the current time Result Diagram: 06/08/18 0420 06/09/18 0431 Consultation Date/Type/Reason Admit Date/Time Jun 06, 2018 at 19:07 Initial Consult Date Type of Consult cv 24 HR Interval Summary Free Text/Dictation He denies chest pain, shortness of breath or palpitations Exam/Review of Systems Vital Signs Vitals Vital Signs Date Temp Pulse Resp B/P (MAP) Pulse Ox O2 O2 Flow FiO2 Time Delivery Rate 06/10/18 98.1 68 18 143/65 95 Room Air 08:03 (91) Intake and Output 06/09/18 06/09/18 06/10/18 1515:00 23:00 07:00 IntakeIntake Total 200 ml 1020 ml 180 ml BalanceBalance 200 ml 1020 ml 180 ml Exam No apparent distress Constitutional: alert, oriented Head: normocephalic Respiratory: other (Coarse breath sounds bilaterally, no wheezing) Cardiovascular: regular rate and rhythm, other (S1-S2 heard) Gastrointestinal: soft, non-tender, bowel sounds Extremities: edema Medications Medications Current Medications IV Flush (NS 3 ml) 3 ml PER PROTOCOL IV ; Start 06/06/18 at 20:00 Ondansetron HCl (Zofran Inj) 4 mg Q6H PRN IV NAUSEA AND/OR VOMITING Last ad ministered on 06/06/18at 23:18; Admin Dose 4 MG; Start 06/06/18 at 20:00 Acetaminophen (Tylenol Tab) 650 mg Q6H PRN PO PAIN LEVEL 1-3 OR FEVER; Start 06/06/18 at 20:00 Docusate Sodium (Colace) 100 mg Q12H PO Last administered on 06/10/18at 08:41; Admin Dose 100 MG; Start 06/06/18 at 20:00 Magnesium Hydroxide (Milk Of Mag) 30 ml DAILY PRN PO CONSTIPATION; Start 06/06/18 at 20:00 Pantoprazole (Protonix Tab) 40 mg DAILY@06 PO Last administered on 06/10/18 06:33; Admin Dose 40 MG; Start 06/07/18 at 06:00 Phenobarbital (Luminal) 64.8 mg BID PO Last administered on 06/10/18 08:41; Admin Dose 64.8 MG; Start 06/06/18 at 23:00 Enoxaparin Sodium (Lovenox) 30 mg DAILY SC Last administered on 06/10/18 08:43; Admin Dose 30 MG; Start 06/07/18 at 09:00 Al Hydrox/Mg Hydrox/Simethicone (Mag-Al Plus) 30 ml Q6H PRN PO GASTROINTESTINAL UPSET Last administered on 06/07/18 12:23; Admin Dose 30 ML; Start 06/07/18 at 12:30 Furosemide (Lasix) 40 mg DAILY PO Last administered on 06/10/18 08:42; Admin Dose 40 MG; Start 06/09/18 at 09:00 Gilson Flynn DO Jun 10, 2018 12:38
== END 2018-06-10 12:30 | disposition home or self-care (01) | DRG 392 ==
LOC: E/R 16:51 → MS1 19:07 → CANRESERV 19:42
PROVIDERS: ADMIT Internal Medicine; ATTEND Internal Medicine
DX: K52.9 Noninfective gastroenteritis and colitis, unspecified (principal); E87.0 Hyperosmolality and hypernatremia; N17.9 Acute kidney failure, unspecified; K59.00 Constipation, unspecified; R11.2 Nausea with vomiting, unspecified; R60.9 Edema, unspecified; N18.9 Chronic kidney disease, unspecified; N20.0 Calculus of kidney; R10.13 Epigastric pain; G40.909 Epilepsy, unspecified, not intractable, without status epilepticus; E86.0 Dehydration
CPT/HCPCS: 36415; 71045; 74019; 74176; 80053; 80184; 81001; 83036; 83690; 83735; 83880; 84100; 84484; 85025; 90686; 93005; 93306; 93970; 97161; J1650; J2405; J7030; J7042